=== PATIENT | female | born 1970 | race Hispanic/Latino ===

== ENCOUNTER 2025-02-26 13:23 | Emergency (ER) | payer OTHER ==
[~2025-02-26 13:23] MED LIST: Iopamidol 300 61% 100 ML VIAL FS ONE
[2025-02-26] MEDS ORDERED: Acetaminophen 500 MG TAB ONE (17:23)
[2025-02-26 17:26] LABS: #Basophils 0.07 10x3/uL (0.0-0.2); #Eosinophils 0.13 10x3/uL (0.0-0.5); #Monocytes 0.59 10x3/uL (0.0-1.1); #Neutrophils 6.43 10x3/uL (1.5-8.4); %Basophils 0.7 % (0.0-2.0); %Eosinophils 1.4 % (0.0-6.0); %Lymphocytes 23.7 % (18.0-47.0); %Monocytes 6.2 % (0.0-10.0); %Neutrophils 67.5 % (40.0-75.0); Hematocrit 36.2 % (34.9-44.5); Hemoglobin 11.8 g/dL (12.0-15.5); Mean Corpuscular Hemoglobin 31.2 pg (27.0-33.0); Mean Corpuscular Volume 95.8 fL (81.6-98.3); Platelet Count 431 10x3/uL (150-450); Red Blood Cell (RBC) Count 3.78 10x6/uL (3.90-5.03); White Blood Cell (WBC) Count 9.53 10x3/uL (3.5-10.5)
[2025-02-26] MEDS ORDERED: Ketorolac Tromethamine 30 MG (1 mL) VIAL ONE (17:46)
[2025-02-26 17:47] LABS: ALT (SGPT) 7 U/L (Less than 34); AST (SGOT) 21 U/L (11-34); Albumin 3.7 g/dL (3.1-4.5); Alkaline Phosphatase 69 U/L (40-110); Anion Gap 11 mmol/L (10-20); BUN (Urea Nitrogen) 17 mg/dL (9.8-20.1); Bilirubin, Total 0.2 mg/dL (0.3-1.2); Calc. Creatinine Clearance 0 mL/min (70-130); Calcium 9.3 mg/dL (7.8-10.44); Carbon Dioxide 25 mmol/L (22-29); Chloride 107 mmol/L (98-107); Globulin 3.2 g/dL (2.4-3.5); Glucose 86 mg/dL (70-105); Potassium 4.2 mmol/L (3.5-5.1); Sodium 139 mmol/L (136-145)
== END 2025-02-26 20:40 | disposition home or self-care (01) ==
LOC: CSHERS 13:23
DX: L02.212 Cutaneous abscess of back [any part, except buttock and flank] (principal)
CPT/HCPCS: 36415; 70490; 71260; 80053; 85025; 87040; 87070; 87205; 96374; J1885; Q9967

== ENCOUNTER 2025-03-08 15:18 | Emergency (ER) | payer OTHER ==
[2025-03-08] MEDS ORDERED: Ketorolac Tromethamine 30 MG (1 mL) VIAL ONE (15:57)
[2025-03-08] MEDS ORDERED: Ondansetron PF 4 MG/2 ML Vial ONE (15:57)
[2025-03-08] MEDS ORDERED: Famotidine/PF 20 mg/2ml Vial ONE (15:57)
[2025-03-08 16:38] LABS: #Basophils 0.08 10x3/uL (0.0-0.2); #Eosinophils 0.09 10x3/uL (0.0-0.5); #Monocytes 0.69 10x3/uL (0.0-1.1); #Neutrophils 9.22 10x3/uL (1.5-8.4); %Basophils 0.6 % (0.0-2.0); %Eosinophils 0.7 % (0.0-6.0); %Lymphocytes 19.7 % (18.0-47.0); %Monocytes 5.5 % (0.0-10.0); %Neutrophils 73.1 % (40.0-75.0); Hematocrit 43.2 % (34.9-44.5); Hemoglobin 14.2 g/dL (12.0-15.5); Mean Corpuscular Hemoglobin 31.0 pg (27.0-33.0); Mean Corpuscular Volume 94.3 fL (81.6-98.3); Platelet Count 374 10x3/uL (150-450); Red Blood Cell (RBC) Count 4.58 10x6/uL (3.90-5.03); White Blood Cell (WBC) Count 12.62 10x3/uL (3.5-10.5)
[2025-03-08 16:45] LABS: BHCG - Serum Negative (NEGATIVE); Pregs Control Background? CLEAR/WHITE (CLR/WHITE); Pregs Control Bar Appear? YES (CONTROL BAR)
[2025-03-08 16:52] LABS: ALT (SGPT) 13 U/L (Less than 34); AST (SGOT) 27 U/L (11-34); Albumin 4.1 g/dL (3.1-4.5); Alkaline Phosphatase 76 U/L (40-110); Anion Gap 14 mmol/L (10-20); BUN (Urea Nitrogen) 14 mg/dL (9.8-20.1); Bilirubin, Total 0.3 mg/dL (0.3-1.2); Calc. Creatinine Clearance 0 mL/min (70-130); Calcium 9.5 mg/dL (7.8-10.44); Carbon Dioxide 26 mmol/L (22-29); Chloride 105 mmol/L (98-107); Globulin 3.2 g/dL (2.4-3.5); Glucose 86 mg/dL (70-105); Lipase 35 U/L (8-78); Potassium 4.6 mmol/L (3.5-5.1); Sodium 140 mmol/L (136-145)
[2025-03-08 16:57] LABS: Troponin I Less than 0.010 ng/mL (< 0.028)
[2025-03-08 17:47] LABS: Glucose, Urine (Dipstick) Normal (Negative); Leukocyte Negative (Negative); Protein, Urine (Dipstick) Negative (Neg-Trace); Specific Gravity, Urine 1.010 (1.005-1.030)
[2025-03-08 18:31] LABS: Bacteria/HPF 1+ HPF (None Seen); CAUTI Indications for Culture Pelvic or flank pain; RBC/HPF None Seen HPF (0-3); WBC/HPF None Seen HPF (0-3)
[2025-03-08 18:32] LABS: Urine Culture Reflex No No
== END 2025-03-08 18:48 | disposition home or self-care (01) ==
LOC: CSHERS 15:18
DX: R10.13 Epigastric pain (principal)
CPT/HCPCS: 74177; 80053; 81001; 83690; 84484; 84703; 85025; 93005; 96374; 96375; J1308; J1885; J2405